=== PATIENT | female | born 1950 | race Caucasian/White ===

== ENCOUNTER 2018-05-13 13:36 | Outpatient (CLI) | payer MEDICARE, MEDICAID | END 2018-05-13 13:37 | disposition home or self-care (01) | LOC: BICMAMMO 13:36 | PROVIDERS: ATTEND Internal Medicine | DX: Z12.31 Encounter for screening mammogram for malignant neoplasm of breast (principal) | CPT/HCPCS: 77063; 77067 ==

== ENCOUNTER 2018-12-01 08:41 | Day surgery (SDC) | payer MEDICARE, MEDICAID ==
[2018-11-30 13:41] VITALS: BMI 36.3
[2018-12-01 09:53] LABS: Hemoglobin 14.2 g/dL (12.0-16.0)
[2018-12-01 10:28] LABS: Anion Gap 13 mmol/L (10-20); BUN (Urea Nitrogen) 12 mg/dL (9.8-20.1); Calc. Creatinine Clearance 109 mL/min (70-130); Calcium 9.3 mg/dL (7.8-10.44); Carbon Dioxide 26 mmol/L (23-31); Chloride 107 mmol/L (98-107); Estimated GFR-MDRD 79; Glucose 101 mg/dL (80-115); Potassium 4.2 mmol/L (3.5-5.1); Sodium 142 mmol/L (136-145)
[2018-12-01] MEDS ORDERED: EPINEPHrine 1 MG/ML AMP ONE (10:41)
[2018-12-01] MEDS ORDERED: Fentanyl 100 MCG/2 ML VIAL ONE (10:45)
[2018-12-01] MEDS ORDERED: Midazolam HCl 2 mg/2 ml Vial ONE (10:45)
[2018-12-01] MEDS ORDERED: Ondansetron PF 4 MG/2 ML Vial ONE (11:52)
[2018-12-01] MEDS ORDERED: Lidocaine 1% PF 5 ML VIAL ONE (11:52)
[2018-12-01] MEDS ORDERED: Succinylcholine Chloride 20 MG/ML 10 ml SYRINGE FS ONE (11:52)
[2018-12-01] MEDS ORDERED: PHENYLEPHRINE-NS 100 MCG/ML 10 ML SYRINGE ONE (11:52)
[2018-12-01] MEDS ORDERED: PROPOFOL 200 MG/20 ML VIAL ONE (11:52)
[2018-12-01] MEDS ORDERED: Dexamethasone 20 MG/5 ML VIAL ONE (11:52)
[2018-12-01] MEDS ORDERED: Hydrocodone-Acetamin 15 ML UDCUP ONE (13:01)
--- NOTE | 2018-12-02 13:50 | OP ---
DATE OF PROCEDURE: 12/01/2018 PREOPERATIVE DIAGNOSIS: Large obstructive right laryngeal mass. POSTOPERATIVE DIAGNOSIS: Right obstructive laryngeal cyst. PROCEDURE: Microsuspension laryngoscopy with endoscopic resection of right obstructive periventricular cyst measuring approximately 3 cm and rigid bronchoscopy. DESCRIPTION OF PROCEDURE: After consent was obtained, the patient was identified and brought to the operating room, and placed on the operating table in supine position. General endotracheal anesthesia was obtained with a jet ventilating tube. The patient was positioned for surgery. Once the patient was positioned for surgery, she underwent placement of a laryngoscope with exposure of the larynx. We then passed a rigid bronchoscope beyond the vocal cords to assess subglottic area and the trachea all of which appeared normal. We then examined the right false cord area as it inserted into the laryngeal surface of epiglottis and countered a large cystic mass that extended from the false cord in ventricular area and extended all the way over of the larynx involving the insertion of the epiglottis in the aryepiglottic folds. This was marsupialized using computer systems manager and shaver with a laryngeal blade. The specimen was sent for histologic evaluation. Airway was established and the cyst was marsupialized. Hemostasis was obtained with topical adrenaline. The patient was awakened, extubated, and taken to recovery room in stable condition prior to discharge home. Job ID: [id number]
== END 2018-12-01 13:12 | disposition home or self-care (01) ==
LOC: SDC 08:41
PROVIDERS: ATTEND Specialist
PROC: 0CBT8ZZ Excision of Right Vocal Cord, Via Natural or Artificial Opening Endoscopic (ICD-10-PCS; principal; 2018-12-01)
PROC: 0CBT8ZZ Excision of Right Vocal Cord, Via Natural or Artificial Opening Endoscopic (ICD-10-PCS; 2018-12-01)
DX: D14.1 Benign neoplasm of larynx (principal); E03.9 Hypothyroidism, unspecified; F17.210 Nicotine dependence, cigarettes, uncomplicated; Z88.0 Allergy status to penicillin; Z79.51 Long term (current) use of inhaled steroids; Z79.1 Long term (current) use of non-steroidal anti-inflammatories (NSAID); Z79.899 Other long term (current) drug therapy
CPT/HCPCS: 36415; 80048; 85014; 85018; 88305; J0171; J1100; J2001; J2250; J2405; J2704; J3010

== ENCOUNTER 2019-09-08 10:11 | Outpatient (CLI) | payer MEDICARE ==
--- NOTE | 2019-09-08 10:41 | RAD ---
2 views of the lumbar spine: 09/08/2019 HISTORY: Low back pain with left lower extremity radiculopathy FINDINGS: There is atherosclerotic calcification of the abdominal aorta. There is a mild degree of degenerative levoscoliosis of the upper lumbar spine. There is lateral osteophyte formation bilaterally at multiple levels within the lumbar spine, most pr ominent on the left at L4-5. Lateral imaging demonstrates significant multilevel lower lumbar spine facet hypertrophy. On the neutral lateral view there is anterolisthesis of L5 on S1 measuring 4 mm. T here is disc space narrowing with degenerative endplate change at all levels throughout the lumbar spine. IMPRESSION: Prominent multilevel degenerative change within the lumbar spine. Mild anterolisthesis at the lumbosacral junction. If there are radicular symptoms, lumbar spine MRI recommended.
--- NOTE | 2019-09-08 11:05 | MRI ---
MR the lumbar spine without contrast: 09/08/2019 History: Chronic pain syndrome, low back pain with left lower extremity radiculopathy COMPARISON: None. TECHNIQUE: Multiplanar multisequence MR images were obtained of lumbar spine without IV contrast FINDINGS: On the basis of 5 lumbar type vertebral bodies, conus medullaris terminates at theL1-2 level. Sagittal STIR imaging demonstrates edematous degenerative endplate change at L2-3 centrally and to th e right of midline. T12-L1:Mild disc bulge with no central canal stenosis. Mild bilateral facet hypertrophy. No significa nt neural foraminal stenosis. L1-2:There is disc space narrowing with disc desiccation, anterior osteophyte formation, disc bulge, and vacuum disc formation. There is a foraminal and post foraminal disc protrusion on the right. Mild central canal stenosis and mild bilateral neural foraminal stenosis. L2-3:Disc space narrowing with disc desiccation, anterior osteophyte formation, and posterior disc os teophyte complex. Prominent bilateral facet hypertrophy, right greater than left. There is moderate right neural foraminal stenosis and mild/moderate left neural foraminal stenosis. Mild/moderate centr al canal stenosis. L3-4:There is disc space narrowing with disc desiccation and disc bulge. There is a foraminal disc pr otrusion on the right. There is mild right neural foraminal stenosis. No significant central canal or left neural foraminal stenosis. L4-5:There is disc space narrowing and disc desiccation with mild disc bulge. No associated central c anal stenosis. There is severe left neural foraminal stenosis on the basis of facet and uncovertebral osteophyte formation. No significant right neural foraminal stenosis. L5-S1:Mild anterolisthesis noted measuring 5 mm. There is disc desiccation. There is prominent bilate ral facet hypertrophy, right greater than left. There is no significant central canal stenosis. There is moderate/severe bilateral neural foraminal stenosis, right greater than left. Image retroperitoneal structures demonstrateno acute findings. IMPRESSION: Prominent multilevel lumbar spine degenerative change as detailed above.
== END 2019-09-08 10:12 | disposition home or self-care (01) ==
LOC: TBSIIMAG 10:11
PROVIDERS: ATTEND Family Medicine
DX: M47.26 Other spondylosis with radiculopathy, lumbar region (principal); G89.4 Chronic pain syndrome; M43.17 Spondylolisthesis, lumbosacral region
CPT/HCPCS: 72100; 72148

== ENCOUNTER 2019-09-12 23:37 | Observation (INO) | payer MEDICARE ==
[2019-09-13 00:13] LABS: #Basophils 0.1 thou/uL (0.0-0.2); #Eosinphils 0.3 thou/uL (0.0-0.7); #Lymphocytes 2.7 thou/uL (1.20-3.40); #Monocytes 0.9 thou/uL (0.11-0.59); #Neutrophils 5.9 thou/uL (1.40-6.50); %Basophils 0.9 % (0.0-1.0); %Eosinophils 2.6 % (0.0-10.0); %Lymphocytes 27.2 % (21.0-51.0); %Monocytes 9.5 % (0.0-10.0); %Neutrophils 59.8 % (42.0-75.0); Hemoglobin 14.8 g/dL (12.0-16.0); Mean Corpuscular HGB CONC 34.3 g/dL (32.0-36.0); Mean Corpuscular Hemoglobin 34.6 pg (27.0-31.0); Mean Platelet Volume 7.4 fL (7.4-10.4); Platelet Count 226 thou/uL (130-400); RBC Distribution Width 12.3 % (11.5-14.5); Red Blood Cell (RBC) Count 4.27 mill/uL (4.20-5.40); White Blood Cell (WBC) Count 9.9 thou/uL (4.8-10.8)
[2019-09-13 00:37] LABS: ALT (SGPT) 12 U/L (8-55); AST (SGOT) 19 U/L (5-34); Alkaline Phosphatase 72 U/L (40-110); Anion Gap 14 mmol/L (10-20); BUN (Urea Nitrogen) 14 mg/dL (9.8-20.1); Bilirubin, Total 0.5 mg/dL (0.2-1.2); Calc. Creatinine Clearance 0 mL/min (70-130); Calcium 9.3 mg/dL (7.8-10.44); Carbon Dioxide 24 mmol/L (23-31); Chloride 104 mmol/L (98-107); Estimated GFR-MDRD 64; Globulin 2.7 g/dL (2.4-3.5); Glucose 107 mg/dL (80-115); Potassium 3.7 mmol/L (3.5-5.1); Protein, Total 6.7 g/dL (6.0-8.3); Sodium 138 mmol/L (136-145)
[2019-09-13 00:58] LABS: CKMB 2.7 ng/mL (0-6.6)
[2019-09-13] MEDS ORDERED: Aspirin 325 MG TAB ONE (00:59)
[2019-09-13 01:19] LABS: Bacteria/HPF 1+ HPF (None Seen); Bilirubin Negative (Negative); Blood, Urine Trace (Negative); Clarity Clear (Clear); Glucose, Urine (Dipstick) Normal (Negative); Leukocyte Negative Leu/uL (Negative); Mucous/LPF Rare LPF (<2+); Nitrite Negative (Negative); Protein, Urine (Dipstick) 10 mg/dL (Neg-Trace); RBC/HPF 0-3 HPF (0-3); Squamous Epithelial None Seen HPF (0-3); Urobilinogen Normal mg/dL (Less than 2); WBC/HPF 0-3 HPF (0-3)
--- NOTE | 2019-09-13 01:26 | PDOC.FPRHP ---
- History of Present Illness Chief Complaint: dizziness History of Present Illness: 68 yo F here complaining of dizziness starting at 2-3 pm yesterday afternoon. After police came to take her daughter to long term, she started feeling dizzy. Started seeing "strange lights" across her field of vision. + lightheadedness and presyncope. Denies chest pain and LOC. However, she did have pain right above her stomach earlier today so took pepto bismol which relieved the tightness and pain in her chest. Pt has been sitting and crying since the police took her daughter. Otherwise, has had Pain in back since . Had MRI, supposed to see pain doctor tomorrow for results. ED Course: had brain CT, neg. EKG neg. - Allergies/Adverse Reactions Allergies Allergy/AdvReac Type Severity Reaction Status Date / Time penicillin G Allergy Verified 11/30/18 13:30 - Home Medications Medication Instructions Recorded Confirmed Type Acetaminophen With Codeine 2 tab PO BID 11/30/18 09/13/19 History [Tylenol with Codeine #3] Atorvastatin Calcium [Lipitor] 1 tab PO HS 11/30/18 09/13/19 History Baclofen 1 tab PO Q6H PRN 11/30/18 09/13/19 History DULoxetine [Cymbalta] 1 tab PO DAILY 11/30/18 09/13/19 History Diclofenac Sodium 1 tab PO DAILY PRN 11/30/18 09/13/19 History Meloxicam 1 tab PO ASDIR PRN 11/30/18 09/13/19 History ALPRAZolam [Xanax] 0.5 mg PO Q6H PRN 09/13/19 09/13/19 History Calcium Carb/Magnesium Oxid/D3 167 mg PO DAILY 09/13/19 09/13/19 History [Calcium Magnesium + Vitamin D] Ferrous Sulfate [Iron] 325 mg PO DAILY 09/13/19 09/13/19 History Garlic 1,000 mg PO DAILY 09/13/19 09/13/19 History Levothyroxine Sodium 125 mcg PO 0600 09/13/19 09/13/19 History Potassium Gluconate [Potassium] 99 mg PO DAILY 09/13/19 09/13/19 History Valerian Root Extract [Valerian] 100 mg PO DAILY 09/13/19 09/13/19 History Vitamin A 25,000 unit PO DAILY 09/13/19 09/13/19 History - History PMHx: Hypothyroidism, chronic back pain, Arnold Chiari malformation PSHx: hysterectomy, x1, tonsillectomy as child FHx: noncontributory Social: - current smoker. <1 ppd, down from 2-3 ppd. Started smoking age 13. - Alcohol: social drinker - Drugs: denies. - Review of Systems General: reports: fever/chills (+ chills and sweating), other (+ sweats) Eyes: reports: vision changes ENT: denies: nasal congestion, rhinorrhea Respiratory: reports: cough (and sneezing, takes antihistamine and nose spray, thinks she has allergies.). denies: shortness of breath Cardiovascular: reports: chest pain (improved w/ pepto bismol) Gastrointestinal: reports: vomiting (day before yesterday). denies: nausea, diarrhea, abdominal pain Genitourinary: denies: dysuria Skin: denies: rashes - Vital signs BP: 161/85, Pulse: 77, Resp: 16, Temp: 99.1 (Oral), Pain: 0, O2 sat: 92 on ( Room Air), Time: 09/12/2019 23:46. - Physical Exam Constitutional: NAD, awake, alert and oriented, well developed HEENT: normocephalic and atraumatic, EOMI, conjunctiva clear, no scleral icterus , grossly normal hearing, MMM Neck: supple, trachea midline, no thyromegaly Heart: RRR, normal S1/S2, no murmurs/rubs/gallops, no edema Lungs: CTAB, no respiratory distress, no wheezing -Lungs: poor air movement Abdomen: soft, non-tender, no masses/distention Musculoskeletal: normal structure, normal tone, ROM grossly normal Neurological: no focal deficit, CN II-XII intact, normal sensation -Neurological: strength 5/5 b/l w/ superintendent plant protection and in lower extremities Skin: no rash/lesions, good turgor Heme/Lymphatic: no unusual bruising or bleeding, no purpura, no petechia Psychiatric: normal mood and affect, intact recent and remote memory FMR H&P: Results - Labs Result Diagrams: 09/13/19 03:08 09/12/19 00:06 Lab results: WBC 9.9 thou/uL (4.8-10.8) 09/12/19 00:06 Hgb 14.8 g/dL (12.0-16.0) 09/12/19 00:06 Hct 43.1 % (36.0-47.0) 09/12/19 00:06 MCV 101.0 fL (78.0-98.0) H 09/12/19 00:06 Plt Count 226 thou/uL (130-400) 09/12/19 00:06 Neutrophils % 59.8 % (42.0-75.0) 09/12/19 00:06 Sodium 138 mmol/L (136-145) 09/12/19 00:06 Potassium 3.7 mmol/L (3.5-5.1) 09/12/19 00:06 Chloride 104 mmol/L (98-107) 09/12/19 00:06 Carbon Dioxide 24 mmol/L (23-31) 09/12/19 00:06 BUN 14 mg/dL (9.8-20.1) 09/12/19 00:06 Creatinine 0.88 mg/dL (0.6-1.1) 09/12/19 00:06 Glucose 107 mg/dL (80-115) 09/12/19 00:06 Calcium 9.3 mg/dL (7.8-10.44) 09/12/19 00:06 Total Bilirubin 0.5 mg/dL (0.2-1.2) 09/12/19 00:06 AST 19 U/L (5-34) 09/12/19 00:06 ALT 12 U/L (8-55) 09/12/19 00:06 Alkaline Phosphatase 72 U/L (40-110) 09/12/19 00:06 CK-MB (CK-2) 2.7 ng/mL (0-6.6) 09/12/19 00:06 Serum Total Protein 6.7 g/dL (6.0-8.3) 09/12/19 00:06 Albumin 4.0 g/dL (3.4-4.8) 09/12/19 00:06 Urine Ketones Negative mg/dL (Negative) 09/13/19 01:01 Urine Blood Trace (Negative) A 09/13/19 01:01 Urine Nitrite Negative (Negative) 09/13/19 01:01 Ur Leukocyte Esterase Negative Jerald/uL (Negative) 09/13/19 01:01 Urine RBC 0-3 HPF (0-3) 09/13/19 01:01 Urine WBC 0-3 HPF (0-3) 09/13/19 01:01 Ur Squamous Epith Cells None Seen HPF (0-3) 09/13/19 01:01 Urine Bacteria 1+ HPF (None Seen) A 09/13/19 01:01 - EKG Interpretation EKG: NSR - Radiology Interpretation CT scan - head Status: image reviewed by me, pending FMR H&P: A/P - Problem List (1) Dizziness Current Visit: Yes Status: Acute Code(s): R42 - DIZZINESS AND GIDDINESS (2) Troponin I above reference range Current Visit: Yes Status: Acute Code(s): R79.89 - OTHER SPECIFIED ABNORMAL FINDINGS OF BLOOD CHEMISTRY (3) Chronic back pain Current Visit: Yes Status: Acute Code(s): M54.9 - DORSALGIA, UNSPECIFIED; G89.29 - OTHER CHRONIC PAIN (4) Arnold-Chiari malformation Current Visit: Yes Status: Acute Code(s): Q07.00 - ARNOLD-CHIARI SYNDROME WITHOUT SPINA BIFIDA OR HYDROCEPHALUS (5) Hypothyroidism Current Visit: Yes Status: Acute Code(s): E03.9 - HYPOTHYROIDISM, UNSPECIFIED - Plan 68-year-old F admitted to tele obs for: Elevated troponin Atypical chest pain - in setting of minimal/atypical chest pain w/ improved w/ pepto bismol - pt has hypothyroidism, could be contributing to a developing cardiomyopathy. DDx includes: acute emotional trauma (Takotsubo), vasospasm, CAD as a current smoker, atherosclerosis. - Trend troponins - consider repeat EKG, nitro, or GI cocktail if recurrent chest pain Dizziness - Unclear etiology at this time. Could have been secondary to dehydration or emotional trauma - orthostatic vital signs pending - carotid doppler study ordered. - encourage PO hydration. Abnormal urinalysis - UA w/ trace blood, hyaline casts, 1+ bacteria - pt is asymptomatic Chronic conditions: Hypothyroidism - TSH elevated. Continue home levothyroxine dose Arnold Chiari Malformation - continue home medications for neuropathic pain Chronic back pain - may continue tylenol #3 Code: Full Fluids: none VTE ppx: Disposition/LOS: admit to tele obs. LOS less than 48H. FMR H&P: Upper Level - Plan Date/Time: 09/13/19 012 PCP: Rosalino HPI: This is a 68F who came in for chief complaint of dizziness. She states that she found out earlier in the day that her daughter was taken to long term. After this had sensation of seeing moving lights spinning in circles. She states she never felt like she was going to pass out or fall, it was not associated with standing up. She denies unilateral weakness, slurred speech, or facial droop. She does say she had substernal chest pain which lasted for about 10 minutes and did not radiate to the arm or the neck. The pain resolved spontaneously. She also has chronic back pain, she recently had an MRI and has an appt to see neurosurgery at 11 am tomorrow. REVIEW OF SYSTEMS: Gen: no fever, chills, or sweats Neuro: see hpi Eyes: see hpi ENT: no hearing changes, no sore throat, no congestion Resp: denies cough, SOB Card: see hpi GI: no N/V/D, no abdominal pain Heme: no easy bruising/bleeding, no blood thinners Skin: no rash, no erythema PHYSICAL EXAMINATION: General: NAD, alert and oriented x3 HEENT: PERRLA, EOMI, normal sclera, oropharynx without erythema or exudate Neck: Supple. Full ROM. Heart/Cardiovascular System: RRR, Cap refill < 3 seconds, no rub, no murmur, no pain to palpation of the chest wall Lungs/Respiratory System: CTA-B, no resp distress Abdomen/Gastro-Intestinal System: no abdominal tenderness, normal bowel sounds Extremities: Warm extremities. No cyanosis or edema Neuro: No gross deficits appreciated. CN 2-12 grossly intact. No arm or leg drift, able to walk to the restroom and back without difficulty, no recurrence of dizziness when laying down or sitting up Psychiatry: Awake, Alert and cooperative with exam Skin: No lesions, rashes, or ulcers Musculoskeletal: Full ROM A/P: # Elevated troponin, r/o ACS vs Takosubo - Will trend trop - No sign of volume overload, would expect higher trops with Takosubo - EKG shows Tinv V1-V3, no ST changes - Monitor on tele, ASA - 50+ pack-year smoking history - HEART: 5, consider stress in AM if trops trend up # Dizziness - Asymptomatic currently - NIHSS: 0 - Will order orthostatics and carotid Doppler - Could be psycogenic vs TIA vs BPPV - CT head no acute process, official read pending - Polypharmacy could be contributing factor # Hypothyroidism - Check TSH, cont home meds # Hx of COPD not in exacerbation # Hx of Arnold-chiari malformation Fluids: TKO Code status: full PPx: scd Dispo: 1-2 days, Addendum - Attending - Attending Attestation Date/Time: 09/13/19 0904 I personally evaluated the patient and discussed the management with Dr. Neal I agree with the History, Examination, Assessment and Plan documented above with any addition or exceptions noted below. 68 yo female with new onset lightheadedness, tightness of chest and seeing "flashes of Light" patient with emotional stress with Daughter taken into custody and 2/3 of her daughter children wards of the [facility]. CXR with enlarged heart troponin elevated and trend downward. PMHX social 3 children FMHX MGF pancreatic CA Mother CVA Father was alcoholic with Alzheimer dementia meds include xanax and muscle relaxor allergy PCN tingling lips while in College advised not to take heavy smoker COPD hypothyroidism HTN Chronic LBP under pain management evaluation Hx Arnold Chiari malformation A/P recent significant emotional stress with findings of enlarged heart associated with presyncopal and neuro symptoms, troponins indeterminate downward trending rec Carotid US, echocardiogram further risk stratification of possible atypical ACS presentation and further neuro evaluation pending results preliminary work up. hypothroidism with slightly elevated TSH geoffrey need dose adjustment. CAD risks include heavy smoking and history HTN. Some component of symptoms may be related to current medication.
[2019-09-13] MEDS ORDERED: Ondansetron PF 4 MG/2 ML Vial IVP PRN (01:36)
[2019-09-13] MEDS ORDERED: Ondansetron ODT 4 MG TAB PO PRN (01:36)
[2019-09-13] MEDS ORDERED: Baclofen 10 MG TAB PO PRN (01:53)
[2019-09-13] MEDS ORDERED: Meloxicam 15 MG TAB PO PRN (01:53)
[2019-09-13] MEDS ORDERED: ALPRAZolam 0.5 MG TAB PO PRN (01:58)
[2019-09-13 03:17] LABS: #Basophils 0.1 thou/uL (0.0-0.2); #Eosinphils 0.3 thou/uL (0.0-0.7); #Lymphocytes 2.8 thou/uL (1.20-3.40); #Monocytes 0.9 thou/uL (0.11-0.59); #Neutrophils 5.7 thou/uL (1.40-6.50); %Basophils 1.2 % (0.0-1.0); %Eosinophils 3.3 % (0.0-10.0); %Lymphocytes 28.8 % (21.0-51.0); %Monocytes 8.9 % (0.0-10.0); %Neutrophils 57.8 % (42.0-75.0); Hemoglobin 14.7 g/dL (12.0-16.0); Mean Corpuscular HGB CONC 34.1 g/dL (32.0-36.0); Mean Corpuscular Hemoglobin 34.3 pg (27.0-31.0); Mean Platelet Volume 7.6 fL (7.4-10.4); Platelet Count 225 thou/uL (130-400); RBC Distribution Width 12.1 % (11.5-14.5); Red Blood Cell (RBC) Count 4.28 mill/uL (4.20-5.40); White Blood Cell (WBC) Count 9.9 thou/uL (4.8-10.8)
[2019-09-13 03:41] LABS: Troponin I 0.149 ng/mL (< 0.028)
[2019-09-13 06:48] LABS: Troponin I 0.149 ng/mL (< 0.028)
[2019-09-13] MEDS: Levothyroxine Sodium 125 MCG TAB PO SCH (06:57)
[2019-09-13 07:16] LABS: Free T4 (Free Thyroxine) 1.06 ng/dL (0.70-1.48)
--- NOTE | 2019-09-13 07:36 | CT ---
Final interpretation Head CT without contrast 09/13/2019: COMPARISON: none HISTORY: Dizziness, visual changes TECHNIQUE: Axial CT imaging at 5 mm intervals from vertex through skull base without contrast FINDINGS: Imaged paranasal sinuses and mastoid air cells well-aerated. No displaced calvarial fractur e. There is atherosclerotic calcification of the cavernous carotid arteries. There are patchy areas of hypodensity within the periventricular, deep, and subcortical white matter suggesting significant small vessel disease. IMPRESSION: No intracranial hemorrhage. Small vessel disease. If there is concern for acute infarctio n, brain MRI suggested. Code QA
[2019-09-13] MEDS ORDERED: Acetaminophen/Codeine 30-300mg Tablet PO SCH (09:00)
[2019-09-13] MEDS ORDERED: DULoxetine 60 MG CAP PO SCH ×2 (09:00→21:00)
--- NOTE | 2019-09-13 09:31 | ULT ---
BILATERAL CAROTID DUPLEX ULTRASOUND: HISTORY: Dizziness TECHNIQUE: Grayscale, color-flow and spectral Doppler ultrasound imaging of the extracranial carotid artery syst ems was performed bilaterally. FINDINGS: There is plaque formation on both sides. The peak systolic velocity in the right ICA measures 81 cm/s with an end-diastolic velocity of 24 cm/ s and a systolic ratio of 0.67. The peak systolic velocity in the left ICA measures 107 cm/s with an end-diastolic velocity of 38 cm/s and a systolic ratio of 1.0. Flow in both vertebral arteries remains antegrade. IMPRESSION: No evidence of hemodynamically significant stenosis is seen on either side.
[2019-09-13 10:00] LABS: Troponin I 0.132 ng/mL (< 0.028)
[2019-09-13] MEDS ORDERED: Acetaminophen/Codeine 30-300mg Tablet ONE (10:44)
[2019-09-13] MEDS ORDERED: Aspirin Chewable 81 MG TAB ONE (10:44)
[2019-09-13] MEDS: Aspirin 81 mg Enteric Coated Tablet PO SCH (10:47)
[2019-09-13 15:33] VITALS: BMI 33.6
[2019-09-13] MEDS ORDERED: Atorvastatin Calcium 20 MG TAB PO SCH (21:00)
[2019-09-13] MEDS: Acetaminophen/Codeine 30-300mg Tablet PO PRN (21:05)
[2019-09-14] MEDS: Levothyroxine Sodium 125 MCG TAB PO SCH (04:21)
--- NOTE | 2019-09-14 06:40 | PDOC.FM ---
- Subjective Subjective: Patient down for stress at time of rounding but per chart review and night team' s report NAEO. Review of tele strip showed SR with one first degree AVB and BBB but otherwise nothing significant. - Objective MAR Reviewed: Yes Vital Signs & Weight: Vital Signs (12 hours) Temp Pulse Resp BP BP Pulse Ox 09/14/19 04:18 98.4 F 79 18 144/77 H 92 L 09/14/19 00:07 98.1 F 74 16 148/67 H 93 L 09/13/19 19:46 98.1 F 82 18 158/73 H 92 L Weight Weight 87.135 kg I&O: 09/12/19 09/13/19 09/14/19 06:59 06:59 06:59 Intake Total 740 Balance 740 Result Diagrams: 09/13/19 03:08 09/12/19 00:06 Phys Exam - Physical Examination Unable to perform as patient down for stress. Will examine once back. Dx/Plan (1) Elevated blood pressure reading without diagnosis of hypertension Code(s): R03.0 - ELEVATED BLOOD-PRESSURE READING, W/O DIAGNOSIS OF HTN Status : Acute (2) CKD (chronic kidney disease), stage II Code(s): N18.2 - CHRONIC KIDNEY DISEASE, STAGE 2 (MILD) Status: Chronic (3) Tobacco abuse Code(s): Z72.0 - TOBACCO USE Status: Chronic (4) Arnold-Chiari malformation Code(s): Q07.00 - ARNOLD-CHIARI SYNDROME WITHOUT SPINA BIFIDA OR HYDROCEPHALUS Status: Chronic (5) Chronic back pain Code(s): M54.9 - DORSALGIA, UNSPECIFIED; G89.29 - OTHER CHRONIC PAIN Status: Chronic (6) Dizziness Code(s): R42 - DIZZINESS AND GIDDINESS Status: Resolved (7) Hypothyroidism Code(s): E03.9 - HYPOTHYROIDISM, UNSPECIFIED Status: Chronic (8) Troponin I above reference range Code(s): R79.89 - OTHER SPECIFIED ABNORMAL FINDINGS OF BLOOD CHEMISTRY Status : Resolved - Plan Plan: 68-year-old F with a PMH significant for hypothyroidism & tobacco abuse who presented with a CC of dizziness and chest pain after her daughter was taken to custodial on the night of presentation. Atypical chest pain - Reported minimal/atypical chest pain that improved w/ pepto bismol - EKG on admission showed Tinv in V1-V3 with no ST changes. Trops downtrended & no recurrent CP since being in ED. - However, patient likely has undiagnosed HTN & has an extensive smoking history. Thus, given these risk factors & per recs of PCP will undergo cardiac stress testing today. - ECHO pending as well. - Consider repeat EKG, nitro, or GI cocktail if recurrent chest pain Dizziness - Unclear etiology at this time. Could have been secondary to dehydration but most likely 2/2 emotional trauma/panic attack. - orthostatic vital signs negative as well as carotid US - Will continue to monitor closely on telemetry as undiagnosed arrhythmia could also explain these symptoms. Elevated troponin - Aware, Trops uptrended downtrended since admission w/ no recurrent episodes of chest pain - Will repeat should patient develop recurrent chest pain Abnormal urinalysis - UA w/ trace blood, hyaline casts, 1+ bacteria - pt is asymptomatic Suspected undiagnosed HTN - BPs in 140s-150s systolic since admission - Will encourage smoking cessation & start on norvasc 2.5 mg QD today Suspected CKD stage II - eGFR 64 on admission & per chart review ranges from 80s-60s. Will renally dose meds PRN. Hypothyroidism - TSH elevated but T4 & T3 WNLs. Continue home levothyroxine dose Arnold Chiari Malformation - continue home medications for neuropathic pain Chronic back pain - may continue tylenol #3 Tobacco Abuse - Will encourage cessation Anxiety - Continue home meds Code: Full Fluids: none VTE ppx: Lovenox GI PPX: none Disposition/LOS: Cardiac stress test this AM per PCP. If WNLs will discharge home today with close follow-up with PCP. Addendum - Attending - Attending Attestation Date/Time: 09/15/19 2830 I personally evaluated the patient and discussed the management with Dr. Zhou yesterday. I agree with the History, Examination, Assessment and Plan documented above with any addition or exceptions noted below.
[2019-09-14 08:21] VITALS: BP 147/70; TEMP 98
[2019-09-14] MEDS ORDERED: Amlodipine 5 MG TAB PO SCH (09:00)
[2019-09-14] MEDS: Aspirin 81 mg Enteric Coated Tablet PO SCH (09:26)
[2019-09-14] MEDS: Enoxaparin Sodium 40 MG/0.4 ML SYRINGE SC SCH ×2 (09:26→09:45)
--- NOTE | 2019-09-14 13:42 | NM ---
EXAM: Cardiac SPECT HISTORY: Chest pain PROTOCOL: Stress only, single isotope TYPE OF STRESS: Pharmacologic stress with adenosine was monitored and interpreted by Dr. Macedo RADIOPHARMACEUTICAL: 30 mCi technetium 99m-sestamibi injected intravenously FINDINGS: Homogeneous tracer distribution is seen in the myocardial segments on the post stress images. Gated SPECT LVEF: 75% Wall motion exam: Normal IMPRESSION: Normal post stress myocardial perfusion scan.
[2019-09-14] MEDS: Acetaminophen/Codeine 30-300mg Tablet PO PRN (14:41)
--- NOTE | 2019-09-14 21:41 | DIS ---
DATE OF ADMISSION: 09/13/2019 DATE OF DISCHARGE: 09/14/2019 RESIDENT: Elizabeth Zhou MD ADMITTING ATTENDING: Gabriel Ingram MD DISCHARGE ATTENDING: Santi Cuellar MD CONSULTS: None. PROCEDURES: 1. Brain CT on 09/12/2019, which showed no intracranial hemorrhage, but small vessel disease. 2. Carotid Doppler study, which showed no evidence of hemodynamically significant stenosis on either internal carotid artery. 3. Nuclear stress test on 09/14/2019, which showed normal myocardial perfusion. 4. Echocardiogram report on 09/14/2019, which showed a normal left ventricular size with an EF estimated at 55% to 60% with trace MR and trace TR. PRIMARY DIAGNOSES: 1. Atypical chest pain secondary to panic attack. 2. Macrocytosis. 3. Suspected hypertension and suspected chronic kidney disease stage 2. SECONDARY DIAGNOSES: 1. Hypothyroidism. 2. Arnold-Chiari malformation. 3. Chronic back pain. 4. Anxiety. 5. Tobacco abuse. DISCHARGE MEDICATIONS: 1. Baclofen 10 mg tablets one tablet p.o. q.6 hours p.r.n. 2. Tylenol with codeine No.3 of 300/30 mg tablets two tablets p.o. b.i.d. 3. Cymbalta 60 mg capsule p.o. daily. 4. Atorvastatin 20 mg one tablet p.o. at bedtime. 5. Levothyroxine sodium 125 mcg p.o. daily. 6. Xanax 0.5 mg p.o. q.6 hours p.r.n. 7. Aspirin 81 mg daily. 8. Norvasc 2.5 mg p.o. daily. DISCONTINUED MEDICATIONS: None. HOSPITAL COURSE: The patient is a 68-year-old female with a past medical history significant for extensive tobacco abuse, hypothyroidism, and chronic back pain, who presented to the emergency department with a chief complaint of sudden onset chest pain with associated dizziness and vision changes after police came and took her daughter to retirement. On presentation to the emergency department, the patient was noted to be slightly hypertensive with blood pressure of 161/85, but all other vitals were within normal limits. A brain CT was obtained, which showed no acute findings and routine laboratories including a CBC, CMP, UA, and troponin and TSH were obtained which were within normal limits with the exception of an elevated troponin of 0.182, elevated TSH at 5.9, and an elevated MCV of 101. An EKG was also obtained, which showed T-wave inversions in leads V3 through V1, but no ST changes. Thus, given the patient's elevated troponin level and multiple risk factors for possible ACS, she was admitted to telemetry for close observation overnight. The patient was monitored closely overnight on telemetry and no significant cardiac events were recorded and her troponins downtrended over the course of the evening. In addition, her chest pain resolved overnight and did not recur for the remainder of her hospital stay. The following morning, a carotid Doppler study was obtained, which showed no hemodynamically significant stenosis and per the records of her PCP, a cardiac nuclear stress test was obtained on the morning of discharge, which showed normal myocardial perfusion. Lastly, prior to discharge, an echocardiogram was obtained, which showed normal cardiac function with an ejection fraction estimated at 55% to 60%. Regarding the patient's hypertension, the patient had persistently elevated blood pressures for her entire hospital stay, ranging from the 140s to 150s systolic over 60s to 70s diastolic. She was therefore discharged on low-dose Norvasc at 2.5 mg daily and instructed to follow up with her PCP for further titration of blood pressure medications as needed. Regarding her macrocytosis, vitamin B12 and folate levels were checked during her hospital stay, which were noted to be within normal limits. Would recommend outpatient monitoring of this. Regarding her suspected CKD stage 2, the patient's BUN and creatinine were within normal limits during her hospital stay; however, her eGFR on presentation was measured at 64 and per chart review since 2017, her eGFR has ranged anywhere from 66 to 79, consistent with CKD stage 2. Would continue to monitor this on an outpatient basis. Regarding her elevated TSH, free T3 and T4 levels were checked during her hospital stay, which were within normal limits at 2.56 and 1.06. Therefore, the patient was discharged on her original Synthroid dose and instructed to follow up with her PCP for continued monitoring of her thyroid function. DISPOSITION: Stable. DISCHARGE INSTRUCTIONS: 1. Location: Home. 2. Diet: Heart healthy, low-sodium diet. 3. Activity: As tolerated. No restrictions. 4. Followup: The patient was instructed to follow up with her PCP, Dr. Nathanael Jerry within one week of discharge. Job ID: [id number] [facility]ITAL[facility]yla
--- NOTE | 2019-09-16 15:03 | EKG ---
Test Reason : Blood Pressure : / mmHG Vent. Rate : 073 BPM Atrial Rate : 073 BPM P-R Int : 166 ms QRS Dur : 134 ms QT Int : 436 ms P-R-T Axes : 035 -56 010 degrees QTc Int : 480 ms Normal sinus rhythm Left axis deviation Right bundle branch block Inferior infarct , age undetermined Anterior infarct , age undetermined Abnormal ECG Confirmed by JAI RASMUSSEN ([id number]), web editor TORRES CABRERA ([id number]) on 09/16/2019 3:03:08 PM Referred By: Confirmed By:JAI RASMUSSEN
== END 2019-09-14 16:20 | disposition home or self-care (01) ==
LOC: ERS 23:37 → ERHOLD 09-13 01:10 → 2SW 09-13 15:04
PROVIDERS: ADMIT Family Medicine; ATTEND Family Medicine
DX: R07.89 Other chest pain (principal); D75.89 Other specified diseases of blood and blood-forming organs; E03.9 Hypothyroidism, unspecified; Q07.00 Arnold-Chiari syndrome without spina bifida or hydrocephalus; G89.29 Other chronic pain; M54.9 Dorsalgia, unspecified; F17.210 Nicotine dependence, cigarettes, uncomplicated; F41.9 Anxiety disorder, unspecified; Z79.899 Other long term (current) drug therapy; Z79.82 Long term (current) use of aspirin; Z88.0 Allergy status to penicillin
CPT/HCPCS: 70450; 78452; 82553; 82607; 82746; 84439; 84481; 84484 ×2; 93005; 93017; 93306; 93880; 97139; 99285; A9500; G0378 ×3; 36415; 80053; 81003; 81015; 84443; 85025; J1650

== ENCOUNTER 2023-03-29 12:36 | Outpatient (CLI) | payer MEDICARE, MEDICAID | END 2023-03-29 12:37 | disposition home or self-care (01) | LOC: SCSMRI 12:36 | PROVIDERS: ATTEND Neurological Surgery | DX: M48.062 Spinal stenosis, lumbar region with neurogenic claudication (principal); M41.86 Other forms of scoliosis, lumbar region; I71.40 Abdominal aortic aneurysm, without rupture, unspecified; M51.36 Other intervertebral disc degeneration, lumbar region | CPT/HCPCS: 72110; 72148 ==

== ENCOUNTER 2025-04-07 13:32 | Inpatient (IN) | payer OTHER ==
[2025-04-07] MEDS ORDERED: Acetaminophen/Codeine 30-300mg Tablet PO PRN (13:48)
[2025-04-07] MEDS ORDERED: Ondansetron PF 4 MG/2 ML Vial IVP PRN (13:48)
[2025-04-07] MEDS ORDERED: Electrolyte Replacement Protocol 1 EACH FS SCH (14:00)
[2025-04-07] MEDS ORDERED: LevoFLOXacin 750 mg/D5W 750 MG in Premix 1 BAG IVPB SCH (14:30)
[2025-04-07] MEDS ORDERED: LevoFLOXacin 750 mg/D5W 150 ml Premix Bag ONE (14:33)
[2025-04-07] MEDS ORDERED: Rocuronium Bromide 10 MG/ML (10ML VIAL) ONE (15:27)
[2025-04-07] MEDS ORDERED: SUCCINYLCHOLINE/SOD CL,ISO/PF 200 MG/10 ML SYRINGE FS ONE (15:27)
[2025-04-07] MEDS ORDERED: PROPOFOL 20 ML ONE (16:04)
[2025-04-07] MEDS ORDERED: Ventilator Sedation Protocol 1 EACH FS SCH (16:50)
[2025-04-07] MEDS ORDERED: Fentanyl BOLUS 100 ML IVPB PRN (17:00)
[2025-04-07] MEDS ORDERED: DISCONTINUE PREVIOUS NARCOTIC PAIN MEDICATIONS AND BENZODIAZEPINES FS SCH (17:00)
[2025-04-07] MEDS ORDERED: Propofol BOLUS 1,000 MG/100 ML VIAL IV PRN (17:00)
[2025-04-07 17:20] LABS: Actual Bicarbonate (HCO3a) 21.4 mEq/L (22-28); Base Excess (BEa) -6.6 mEq/L (-2.0 to +3.0); CO2 Tension 53.1 mmHg (35.0-45.0); Calcium, Ionized (arterial) 1.10 mmol/L (1.12-1.30); Hematocrit-ABG 41 % (36.0-47.0); Hemoglobin (Hb) 14.0 g/dL (12.0-16.0); O2 Tension (PaO2), arterial 76.0 mmHg (> 70.0); Potassium - ABG Lab 3.89 mmol/L (3.70-5.30); pH, Arterial 7.224 (7.35-7.45)
[2025-04-07 17:21] LABS: Puncture Site Right Radial artery
[2025-04-07 17:22] LABS: ALV-art Gradient 285.425 mmHg (0-20)
[2025-04-07] MEDS: Pantoprazole 80 MG, Admixture Fee 1 EACH in Sodium Chloride 0.9% 100 ML IVPB SCH (18:03)
[2025-04-07] MEDS: Fluconazole In NaCl,Iso-Osm 400 MG in Premix 1 BAG IVPB SCH (19:48)
[2025-04-07 21:09] LABS: #Basophils Less than 0.03 10x3/uL (0.0-0.2); #Eosinophils Less than 0.03 10x3/uL (0.0-0.7); #Monocytes 1.04 10x3/uL (0.11-0.59); #Neutrophils 12.74 10x3/uL (1.40-6.50); %Basophils 0.1 % (0.0-1.0); %Eosinophils 0.1 % (0.0-10.0); %Lymphocytes 8.0 % (21.0-51.0); %Monocytes 6.9 % (0.0-10.0); %Neutrophils 84.4 % (42.0-75.0); Hematocrit 38.8 % (36.0-47.0); Hemoglobin 12.5 g/dL (12.0-16.0); Mean Corpuscular Hemoglobin 33.1 pg (27.0-31.0); Mean Corpuscular Volume 102.6 fL (78.0-98.0); Platelet Count 196 10x3/uL (130-400); Red Blood Cell (RBC) Count 3.78 mill/uL (4.20-5.40); White Blood Cell (WBC) Count 15.08 10x3/uL (4.8-10.8)
[2025-04-07 21:22] LABS: Albumin 3.2 g/dL (3.1-4.5); Anion Gap 14 mmol/L (10-20); BUN (Urea Nitrogen) 12 mg/dL (9.8-20.1); BUN/Creatinine Ratio 20.34; Calc. Creatinine Clearance 99 mL/min (70-130); Calcium 7.7 mg/dL (7.8-10.44); Carbon Dioxide 23 mmol/L (23-31); Chloride 110 mmol/L (98-107); Glucose 114 mg/dL (83-110); Potassium 4.0 mmol/L (3.5-5.1); Sodium 143 mmol/L (136-145)
[2025-04-08] MEDS: Acetaminophen 325 MG TAB PO PRN (04:12)
[2025-04-08 05:32] LABS: #Basophils Less than 0.03 10x3/uL (0.0-0.2); #Eosinophils 0.08 10x3/uL (0.0-0.7); #Monocytes 1.14 10x3/uL (0.11-0.59); #Neutrophils 9.66 10x3/uL (1.40-6.50); %Basophils 0.1 % (0.0-1.0); %Eosinophils 0.7 % (0.0-10.0); %Lymphocytes 10.9 % (21.0-51.0); %Monocytes 9.3 % (0.0-10.0); %Neutrophils 78.7 % (42.0-75.0); Hematocrit 35.0 % (36.0-47.0); Hemoglobin 11.2 g/dL (12.0-16.0); Mean Corpuscular Hemoglobin 33.3 pg (27.0-31.0); Mean Corpuscular Volume 104.2 fL (78.0-98.0); Platelet Count 184 10x3/uL (130-400); Red Blood Cell (RBC) Count 3.36 mill/uL (4.20-5.40); White Blood Cell (WBC) Count 12.27 10x3/uL (4.8-10.8)
[2025-04-08 06:01] LABS: ALT (SGPT) 7 U/L (Less than 34); AST (SGOT) 20 U/L (11-34); Albumin 2.6 g/dL (3.1-4.5); Alkaline Phosphatase 50 U/L (40-110); Anion Gap 13 mmol/L (10-20); BUN (Urea Nitrogen) 13 mg/dL (9.8-20.1); Bilirubin, Total 0.5 mg/dL (0.3-1.2); Calc. Creatinine Clearance 91 mL/min (70-130); Calcium 7.7 mg/dL (7.8-10.44); Carbon Dioxide 22 mmol/L (23-31); Chloride 110 mmol/L (98-107); Globulin 2.4 g/dL (2.4-3.5); Glucose 99 mg/dL (83-110); Potassium 3.9 mmol/L (3.5-5.1); Sodium 141 mmol/L (136-145)
[2025-04-08] MEDS: Albumin 25% 25 GM (100 mL) BOT IVPB SCH ×2 (06:25→11:32)
[2025-04-08] MEDS: Fluconazole In NaCl,Iso-Osm 100 MG in Admixture Fee 1 EACH IVPB SCH (10:33)
[2025-04-08] MEDS: oxyCODONE 5 MG TAB PO PRN (15:27)
[2025-04-08] MEDS: LevoFLOXacin 750 mg/D5W 750 MG in Premix 1 BAG IVPB SCH (15:30)
[2025-04-09 05:56] LABS: #Basophils 0.03 10x3/uL (0.0-0.2); #Eosinophils 0.06 10x3/uL (0.0-0.7); #Monocytes 1.06 10x3/uL (0.11-0.59); #Neutrophils 11.03 10x3/uL (1.40-6.50); %Basophils 0.2 % (0.0-1.0); %Eosinophils 0.4 % (0.0-10.0); %Lymphocytes 10.5 % (21.0-51.0); %Monocytes 7.7 % (0.0-10.0); %Neutrophils 80.7 % (42.0-75.0); Hematocrit 33.7 % (36.0-47.0); Hemoglobin 10.7 g/dL (12.0-16.0); Mean Corpuscular Hemoglobin 33.0 pg (27.0-31.0); Mean Corpuscular Volume 104.0 fL (78.0-98.0); Platelet Count 168 10x3/uL (130-400); Red Blood Cell (RBC) Count 3.24 mill/uL (4.20-5.40); White Blood Cell (WBC) Count 13.69 10x3/uL (4.8-10.8)
[2025-04-09 06:13] LABS: ALT (SGPT) Less than 7 U/L (Less than 34); AST (SGOT) 14 U/L (11-34); Albumin 3.5 g/dL (3.1-4.5); Alkaline Phosphatase 51 U/L (40-110); Anion Gap 16 mmol/L (10-20); BUN (Urea Nitrogen) 8 mg/dL (9.8-20.1); Bilirubin, Total 0.7 mg/dL (0.3-1.2); Calc. Creatinine Clearance 99 mL/min (70-130); Calcium 8.5 mg/dL (7.8-10.44); Carbon Dioxide 20 mmol/L (23-31); Chloride 109 mmol/L (98-107); Globulin 2.5 g/dL (2.4-3.5); Glucose 85 mg/dL (83-110); Potassium 3.5 mmol/L (3.5-5.1); Sodium 141 mmol/L (136-145)
[2025-04-09] MEDS: Potassium Chloride 20 MEQ in Premix 1 BAG IVPB SCH (07:48)
[2025-04-09 16:07] LABS: Potassium 3.7 mmol/L (3.5-5.1)
[2025-04-10 04:59] LABS: #Basophils 0.03 10x3/uL (0.0-0.2); #Eosinophils 0.09 10x3/uL (0.0-0.7); #Monocytes 1.39 10x3/uL (0.11-0.59); #Neutrophils 15.52 10x3/uL (1.40-6.50); %Basophils 0.2 % (0.0-1.0); %Eosinophils 0.5 % (0.0-10.0); %Lymphocytes 7.5 % (21.0-51.0); %Monocytes 7.5 % (0.0-10.0); %Neutrophils 83.8 % (42.0-75.0); Hematocrit 36.4 % (36.0-47.0); Hemoglobin 12.0 g/dL (12.0-16.0); Mean Corpuscular Hemoglobin 33.1 pg (27.0-31.0); Mean Corpuscular Volume 100.3 fL (78.0-98.0); Platelet Count 181 10x3/uL (130-400); Red Blood Cell (RBC) Count 3.63 mill/uL (4.20-5.40); White Blood Cell (WBC) Count 18.52 10x3/uL (4.8-10.8)
[2025-04-10 05:24] LABS: ALT (SGPT) Less than 7 U/L (Less than 34); AST (SGOT) 28 U/L (11-34); Albumin 3.5 g/dL (3.1-4.5); Alkaline Phosphatase 70 U/L (40-110); Anion Gap 18 mmol/L (10-20); BUN (Urea Nitrogen) 7 mg/dL (9.8-20.1); Bilirubin, Total 1.0 mg/dL (0.3-1.2); Calc. Creatinine Clearance 111 mL/min (70-130); Calcium 9.2 mg/dL (7.8-10.44); Carbon Dioxide 18 mmol/L (23-31); Chloride 106 mmol/L (98-107); Globulin 3.1 g/dL (2.4-3.5); Glucose 117 mg/dL (83-110); Potassium 3.8 mmol/L (3.5-5.1); Sodium 138 mmol/L (136-145)
[2025-04-10] MEDS: Losartan 25 MG TAB PO SCH (09:26)
[2025-04-10 12:32] LABS: Actual Bicarbonate (HCO3v) 21.1 mEq/L (22-28); Base Excess -1.9 mEq/L (-2.0 to +3.0); Calcium, Ionized (venous) 1.15 mmol/L (1.16-1.32); Chloride (VBG) 101 mmol/L (98-106); Hematocrit-VBG 40 % (36.0-47.0); Hemoglobin (Hb) 13.7 g/dL (11.7-16.1); Potassium (VBG) 3.18 mmol/L (3.70-5.30); Sodium 136 mmol/L (133-146)
[2025-04-10] MEDS: diphenhydrAMINE 25 MG CAP PO PRN (21:58)
[2025-04-10] MEDS: ALPRAZolam 0.25 MG TAB PO SCH (23:23)
[2025-04-10] MEDS: Baclofen 10 MG TAB PO SCH (23:24)
[2025-04-11] MEDS: QUEtiapine 25 MG TAB PO SCH (00:50)
[2025-04-11 07:30] LABS: #Basophils 0.03 10x3/uL (0.0-0.2); #Eosinophils 0.46 10x3/uL (0.0-0.7); #Monocytes 1.29 10x3/uL (0.11-0.59); #Neutrophils 8.43 10x3/uL (1.40-6.50); %Basophils 0.2 % (0.0-1.0); %Eosinophils 3.7 % (0.0-10.0); %Lymphocytes 18.0 % (21.0-51.0); %Monocytes 10.3 % (0.0-10.0); %Neutrophils 67.3 % (42.0-75.0); Hematocrit 35.9 % (36.0-47.0); Hemoglobin 11.7 g/dL (12.0-16.0); Mean Corpuscular Hemoglobin 32.8 pg (27.0-31.0); Mean Corpuscular Volume 100.6 fL (78.0-98.0); Platelet Count 211 10x3/uL (130-400); Red Blood Cell (RBC) Count 3.57 mill/uL (4.20-5.40); White Blood Cell (WBC) Count 12.53 10x3/uL (4.8-10.8)
[2025-04-11 07:43] LABS: Anion Gap 11 mmol/L (10-20); BUN (Urea Nitrogen) 9 mg/dL (9.8-20.1); Calc. Creatinine Clearance 98 mL/min (70-130); Calcium 8.4 mg/dL (7.8-10.44); Carbon Dioxide 27 mmol/L (23-31); Chloride 105 mmol/L (98-107); Glucose 91 mg/dL (83-110); Potassium 2.8 mmol/L (3.5-5.1); Sodium 140 mmol/L (136-145)
[2025-04-11] MEDS ORDERED: Baclofen 10 MG TAB PO SCH (09:00)
[2025-04-11] MEDS ORDERED: ALPRAZolam 0.25 MG TAB PO SCH (09:00)
[2025-04-11] MEDS: Pantoprazole 40 MG VIAL IVP SCH (09:17)
[2025-04-11] MEDS: Magnesium 2 GM/50 ML(in water) 2 GM in Premix 1 BAG IVPB SCH (11:39)
[2025-04-11] MEDS: Enoxaparin 40 MG (0.4 mL) SYRINGE SC SCH (11:40)
[2025-04-11 13:43] LABS: Potassium 3.3 mmol/L (3.5-5.1)
[2025-04-11] MEDS: Electrolyte Replacement Protocol 1 EACH FS ONE (15:11)
[2025-04-12] MEDS: hydrALAZINE 20 MG/ML VIAL SLOW IVP PRN (00:25)
[2025-04-12 06:03] LABS: Magnesium 1.7 mg/dL (1.6-2.6)
[2025-04-12] MEDS: Magnesium 2 GM/50 ML(in water) 2 GM in Premix 1 BAG IVPB SCH (06:47)
[2025-04-12 07:40] LABS: #Basophils 0.05 10x3/uL (0.0-0.2); #Eosinophils 0.36 10x3/uL (0.0-0.7); #Monocytes 1.04 10x3/uL (0.11-0.59); #Neutrophils 6.09 10x3/uL (1.40-6.50); %Basophils 0.5 % (0.0-1.0); %Eosinophils 3.7 % (0.0-10.0); %Lymphocytes 22.0 % (21.0-51.0); %Monocytes 10.7 % (0.0-10.0); %Neutrophils 62.6 % (42.0-75.0); Hematocrit 41.0 % (36.0-47.0); Hemoglobin 12.8 g/dL (12.0-16.0); Mean Corpuscular Hemoglobin 33.0 pg (27.0-31.0); Mean Corpuscular Volume 105.7 fL (78.0-98.0); Platelet Count 197 10x3/uL (130-400); Red Blood Cell (RBC) Count 3.88 mill/uL (4.20-5.40); White Blood Cell (WBC) Count 9.73 10x3/uL (4.8-10.8)
[2025-04-12 07:53] LABS: Anion Gap 15 mmol/L (10-20); BUN (Urea Nitrogen) 9 mg/dL (9.8-20.1); Calc. Creatinine Clearance 107 mL/min (70-130); Calcium 8.4 mg/dL (7.8-10.44); Carbon Dioxide 19 mmol/L (23-31); Chloride 108 mmol/L (98-107); Glucose 88 mg/dL (83-110); Potassium 4.1 mmol/L (3.5-5.1); Sodium 138 mmol/L (136-145)
[2025-04-12] MEDS: Enoxaparin 40 MG (0.4 mL) SYRINGE SC SCH (10:14)
[2025-04-12 13:17] LABS: Potassium 3.8 mmol/L (3.5-5.1)
[2025-04-13 04:13] LABS: Magnesium 2.1 mg/dL (1.6-2.6)
[2025-04-13 06:25] VITALS: BMI 27.6
[2025-04-13 09:09] VITALS: BMI 27.6
[2025-04-13] MEDS: Pantoprazole 40 MG DR.TAB PO SCH (09:15)
[2025-04-13] MEDS: Furosemide 40 MG (4 mL) VIAL SLOW IVP SCH (14:09)
[2025-04-14 04:51] LABS: #Basophils Less than 0.03 10x3/uL (0.0-0.2); #Eosinophils 0.45 10x3/uL (0.0-0.7); #Monocytes 0.96 10x3/uL (0.11-0.59); #Neutrophils 6.54 10x3/uL (1.40-6.50); %Basophils 0.2 % (0.0-1.0); %Eosinophils 4.2 % (0.0-10.0); %Lymphocytes 24.5 % (21.0-51.0); %Monocytes 9.0 % (0.0-10.0); %Neutrophils 61.3 % (42.0-75.0); Hematocrit 37.2 % (36.0-47.0); Hemoglobin 12.2 g/dL (12.0-16.0); Mean Corpuscular Hemoglobin 32.6 pg (27.0-31.0); Mean Corpuscular Volume 99.5 fL (78.0-98.0); Platelet Count 246 10x3/uL (130-400); Red Blood Cell (RBC) Count 3.74 mill/uL (4.20-5.40); White Blood Cell (WBC) Count 10.68 10x3/uL (4.8-10.8)
[2025-04-14 05:09] LABS: Anion Gap 12 mmol/L (10-20); BUN (Urea Nitrogen) 16 mg/dL (9.8-20.1); Calc. Creatinine Clearance 86 mL/min (70-130); Calcium 8.3 mg/dL (7.8-10.44); Carbon Dioxide 30 mmol/L (23-31); Chloride 99 mmol/L (98-107); Glucose 93 mg/dL (83-110); Potassium 3.3 mmol/L (3.5-5.1); Sodium 138 mmol/L (136-145)
[2025-04-15 05:50] LABS: #Basophils 0.03 10x3/uL (0.0-0.2); #Eosinophils 0.45 10x3/uL (0.0-0.7); #Monocytes 1.07 10x3/uL (0.11-0.59); #Neutrophils 5.61 10x3/uL (1.40-6.50); %Basophils 0.3 % (0.0-1.0); %Eosinophils 4.3 % (0.0-10.0); %Lymphocytes 30.0 % (21.0-51.0); %Monocytes 10.3 % (0.0-10.0); %Neutrophils 54.1 % (42.0-75.0); Hematocrit 37.8 % (36.0-47.0); Hemoglobin 12.2 g/dL (12.0-16.0); Mean Corpuscular Hemoglobin 32.3 pg (27.0-31.0); Mean Corpuscular Volume 100.0 fL (78.0-98.0); Platelet Count 256 10x3/uL (130-400); Red Blood Cell (RBC) Count 3.78 mill/uL (4.20-5.40); White Blood Cell (WBC) Count 10.37 10x3/uL (4.8-10.8)
[2025-04-15 06:01] LABS: Anion Gap 12 mmol/L (10-20); BUN (Urea Nitrogen) 23 mg/dL (9.8-20.1); Calc. Creatinine Clearance 71 mL/min (70-130); Calcium 8.4 mg/dL (7.8-10.44); Carbon Dioxide 26 mmol/L (23-31); Chloride 105 mmol/L (98-107); Glucose 96 mg/dL (83-110); Potassium 4.0 mmol/L (3.5-5.1); Sodium 139 mmol/L (136-145)
[2025-04-16 06:25] LABS: #Basophils 0.04 10x3/uL (0.0-0.2); #Eosinophils 0.36 10x3/uL (0.0-0.7); #Monocytes 1.21 10x3/uL (0.11-0.59); #Neutrophils 7.08 10x3/uL (1.40-6.50); %Basophils 0.4 % (0.0-1.0); %Eosinophils 3.2 % (0.0-10.0); %Lymphocytes 21.9 % (21.0-51.0); %Monocytes 10.8 % (0.0-10.0); %Neutrophils 63.2 % (42.0-75.0); Hematocrit 40.9 % (36.0-47.0); Hemoglobin 13.4 g/dL (12.0-16.0); Mean Corpuscular Hemoglobin 32.1 pg (27.0-31.0); Mean Corpuscular Volume 98.1 fL (78.0-98.0); Platelet Count 269 10x3/uL (130-400); Red Blood Cell (RBC) Count 4.17 mill/uL (4.20-5.40); White Blood Cell (WBC) Count 11.21 10x3/uL (4.8-10.8)
[2025-04-16 06:39] LABS: Anion Gap 13 mmol/L (10-20); BUN (Urea Nitrogen) 17 mg/dL (9.8-20.1); Calc. Creatinine Clearance 84 mL/min (70-130); Calcium 8.9 mg/dL (7.8-10.44); Carbon Dioxide 28 mmol/L (23-31); Chloride 104 mmol/L (98-107); Glucose 99 mg/dL (83-110); Potassium 4.1 mmol/L (3.5-5.1); Sodium 141 mmol/L (136-145)
[2025-04-17 03:16] VITALS: TEMP 98
[2025-04-17 05:29] LABS: #Basophils 0.03 10x3/uL (0.0-0.2); #Eosinophils 0.37 10x3/uL (0.0-0.7); #Monocytes 1.08 10x3/uL (0.11-0.59); #Neutrophils 6.75 10x3/uL (1.40-6.50); %Basophils 0.3 % (0.0-1.0); %Eosinophils 3.4 % (0.0-10.0); %Lymphocytes 23.5 % (21.0-51.0); %Monocytes 10.0 % (0.0-10.0); %Neutrophils 62.2 % (42.0-75.0); Hematocrit 39.2 % (36.0-47.0); Hemoglobin 12.7 g/dL (12.0-16.0); Mean Corpuscular Hemoglobin 32.2 pg (27.0-31.0); Mean Corpuscular Volume 99.2 fL (78.0-98.0); Platelet Count 303 10x3/uL (130-400); Red Blood Cell (RBC) Count 3.95 mill/uL (4.20-5.40); White Blood Cell (WBC) Count 10.84 10x3/uL (4.8-10.8)
[2025-04-17 05:37] LABS: Anion Gap 12 mmol/L (10-20); BUN (Urea Nitrogen) 15 mg/dL (9.8-20.1); Calc. Creatinine Clearance 87 mL/min (70-130); Calcium 8.8 mg/dL (7.8-10.44); Carbon Dioxide 28 mmol/L (23-31); Chloride 106 mmol/L (98-107); Glucose 103 mg/dL (83-110); Potassium 3.9 mmol/L (3.5-5.1); Sodium 142 mmol/L (136-145)
[2025-04-17 12:04] VITALS: BP 115/72
== END 2025-04-17 15:43 | DRG 853 ==
LOC: ERS 13:32 → ERHOLD 13:56 → CCU 17:00 → SURG A 04-09 10:36 → IMCU/EMU 04-09 16:07 → SURG B 04-16 12:04
PROVIDERS: ADMIT Surgery; ATTEND Surgery
PROC: 0DQ70ZZ Repair Stomach, Pylorus, Open Approach (ICD-10-PCS; principal; 2025-04-07)
PROC: 0DJ60ZZ Inspection of Stomach, Open Approach (ICD-10-PCS; 2025-04-07)
PROC: 4A033R1 Measurement of Arterial Saturation, Peripheral, Percutaneous Approach (ICD-10-PCS; 2025-04-07)
PROC: 3E03329 Introduction of Other Anti-infective into Peripheral Vein, Percutaneous Approach (ICD-10-PCS; 2025-04-07)
PROC: 5A1935Z Respiratory Ventilation, Less than 24 Consecutive Hours (ICD-10-PCS; 2025-04-07)
PROC: 30233N1 Transfusion of Nonautologous Red Blood Cells into Peripheral Vein, Percutaneous Approach (ICD-10-PCS; 2025-04-08)
PROC: 30233J1 Transfusion of Nonautologous Serum Albumin into Peripheral Vein, Percutaneous Approach (ICD-10-PCS; 2025-04-08)
PROC: 5A0955A Assistance with Respiratory Ventilation, Greater than 96 Consecutive Hours, High Flow/Velocity Cannula (ICD-10-PCS; 2025-04-09)
DX: A41.9 Sepsis, unspecified organism (principal); J96.01 Acute respiratory failure with hypoxia; K63.1 Perforation of intestine (nontraumatic); K25.5 Chronic or unspecified gastric ulcer with perforation; K65.9 Peritonitis, unspecified; E87.29 Other acidosis; K81.0 Acute cholecystitis; I10 Essential (primary) hypertension; J44.9 Chronic obstructive pulmonary disease, unspecified; K57.30 Diverticulosis of large intestine without perforation or abscess without bleeding; E78.5 Hyperlipidemia, unspecified; F17.210 Nicotine dependence, cigarettes, uncomplicated; F41.9 Anxiety disorder, unspecified; Z90.710 Acquired absence of both cervix and uterus; Z98.891 History of uterine scar from previous surgery; Z98.890 Other specified postprocedural states; Z79.899 Other long term (current) drug therapy; Z88.0 Allergy status to penicillin
CPT/HCPCS: 36415; 36600; 71045; 71275; 74177; 80048; 80053; 82805; 83605; 83690; 83735; 84100; 84132; 84443; 84484; 85025; 85610; 85730; 87040; 93005; 93970; 94002; 94003; 94640; 96365; 96372; 96374; 96375; 96376; A4314; J0360; J1171; J1450; J1650; J1885; J1940; J1956; J2060; J2185; J2250; J2270; J2405; J2470; J2704; J3010; J3475; J3480; J7120; J7620; J7626; P9045; P9047; Q9968